=== PATIENT | female | born 1935 | race African-American/Black ===

== ENCOUNTER 2017-03-17 05:14 | Day surgery (SDC) | payer MEDICARE, OTHER ==
[2017-03-17] VITALS (10 sets, daily range): BP systolic 146–177; BP diastolic 58–79
[~2017-03-17] VITALS: Ht 152.4 cm; Wt 66.2 kg
[2017-03-17] MEDS ORDERED: Phenylephrine 2.5% Op 2ml Soln ONE (05:34)
[2017-03-17] MEDS ORDERED: Cyclopentolate 1% Opth Sol 2ml ONE (05:34)
[2017-03-17] MEDS ORDERED: Flurbiprofen 0.03% Opth Sol 2.5ml ONE (05:34)
[2017-03-17] MEDS ORDERED: Vigamox Opth Soln 3ml ONE (05:34)
[2017-03-17] MEDS: Cyclopentolate 1% Opth Sol 2ml RIGHT EYE SCH ×3 (05:52→06:24)
[2017-03-17] MEDS: Vigamox Opth Soln 3ml RIGHT EYE SCH ×3 (05:52→06:24)
[2017-03-17] MEDS: Flurbiprofen 0.03% Opth Sol 2.5ml RIGHT EYE SCH ×3 (05:52→06:24)
[2017-03-17] MEDS: Phenylephrine 2.5% Op 2ml Soln RIGHT EYE SCH ×3 (05:52→06:24)
[2017-03-17] MEDS ORDERED: Pred Forte 1% Opth Susp 1ml RIGHT EYE SCH (06:00)
--- NOTE | 2017-03-17 06:00 | Pre-op HX & Phy Repo 2 SIG ---
DATE OF ADMISSION: 03/17/2017 DATE OF SURGERY: 03/17/2017 PREOPERATIVE DIAGNOSIS: Retained lens material, right eye. PROCEDURES PERFORMED: 1. Pars plana vitrectomy with removal of retained lens material. 2. By Dr. Manjeet Putnam insertion of secondary intra-ocular lens. BRIEF NOTE: This is a first [facility] admission for the patient, who is a very nice 81-year-old lady, who had a cataract surgery performed this morning complicated by posterior capsular rupture. No implant was placed by the operating surgeon. She was seen at my office with some degree of discomfort and inflammation and was found to have retained lens material, both nuclear and cortical with mild anterior segment inflammation. PAST OCULAR HISTORY: Negative for prior cataract surgery. PAST MEDICAL HISTORY: Remarkable for hypertension, previous cerebrovascular accident, chronic obstructive pulmonary disease, and peripheral vascular disease. She will be admitted for surgery this morning. ALLERGIES: She has no known allergies. PHYSICAL EXAMINATION: Best vision at the time of admission was hand motions in the right eye, 20/50 in the left. The pressures were 28 and 18. The anterior segment on the right showed 1+ conjunctival chemosis. There is also injection. A single suture was placed across the cataract wound at the 10 o'clock position. The anterior chamber was deep with mild inflammation and residual cortical material between the leaves of the capsule, mainly temporally. The left anterior segment was clear. There was a significant nuclear cataract. The fundus on the right could not be seen secondary to the cortical opacification of residual lens material. The left was undilated, which showed what appeared to be a normal-appearing posterior segment only. An ultrasound exam done at the time of the visit showed the retina to be all attached with no evidence of choroidal effusions. There was extensive lens debris with smaller fragments anteriorly in the vitreous and a larger fragment posteriorly at about 6 o'clock position. No masses were seen. ASSESSMENT: Retained lens material, right eye. PLAN: The plan is to perform a pars plana vitrectomy, removal of cortical and nuclear fragments with sparing the capsule. A second implant will be performed by co-surgeon Dr. Manjeet Putnam. The risks and benefits of surgery have been gone over with the patient including potential for infection, hemorrhage, glaucoma, inability to place a lens implant, remote possibility of loss of the eye. The risk of anesthesia was discussed. and her family understands and consents to surgery to be performed tomorrow morning. Mehdi Man M.D. DR: PINO JOB#: [id number] CC:
[2017-03-17 06:11] LABS: BASOPHILS % (AUTO) 0.9 % (0.0-2.0); EOSINOPHILS % (AUTO) 8.9 % (0.0-3.0); LYMPHOCYTES % (AUTO) 15.1 % (20.0-45.0); MEAN CORPUSCULAR HEMOGLOBIN 29.5 PG (27.0-31.0); MEAN CORPUSCULAR HGB CONC 31.3 G/DL (32.0-36.0); MEAN CORPUSCULAR VOLUME 94 FL (80-99); MONOCYTES % (AUTO) 15.6 % (1.0-10.0); NEUTROPHILS % (AUTO) 59.6 % (45.0-75.0); PLATELET COUNT 150 K/UL (150-450); RED BLOOD COUNT 5.25 M/UL (4.20-5.40); RED CELL DISTRIBUTION WIDTH 16.2 % (11.6-14.8); WHITE BLOOD COUNT 4.6 K/UL (4.8-10.8)
--- NOTE | 2017-03-17 06:16 | Pre-Procedure Note/Attestation ---
Pre-Procedure Note/Attestation Complete Prior to Procedure Planned Procedure: right Procedure Narrative: 1) PPV, reinforcement of cataract wound, fragmentation of retained lens material Right eye 2) Insertion of secondary intraocular lens implant R eye (Dr Putnam) Indications for Procedure Pre-Operative Diagnosis: Retained cataract fragments, Right eye Attestation I attest that I discussed the nature of the procedure; its benefits; risks and complications; and alternatives (and the risks and benefits of such alternatives ), prior to the procedure, with the patient (or the patient's legal automotive leasing sales representative). I attest that, if there was a reasonable possibility of needing a blood transfusion, the patient (or the patient's legal automotive leasing sales representative) was given the [place] Department [employer] Services standardized written summary, pursuant to the Alonzo Alex Blood Safety Act ([place] Health and Safety Code # 1645, as amended). I attest that I re-evaluated the patient just prior to the surgery and that there has been no change in the patient's H&P, except as documented below: BEVERLY PIZANO Mar 17, 2017 06:15
[2017-03-17] MEDS ORDERED: Norco 5mg/325mg tab ORAL PRN ×3 (06:30→15:01)
[2017-03-17] MEDS ORDERED: HYDRALAZINE HCL50 MG ORAL (06:34)
[2017-03-17] MEDS ORDERED: NEXIUM40 MG ORAL (06:34)
[2017-03-17] MEDS ORDERED: ALBUTEROL SULF8.5 GM INH (06:34)
[2017-03-17] MEDS ORDERED: LOSARTAN POTAS100 MG ORAL (06:34)
[2017-03-17] MEDS ORDERED: LIVALO2 MG PO (06:34)
[2017-03-17] MEDS ORDERED: TORSEMIDE20 MG ORAL (06:34)
[2017-03-17] MEDS ORDERED: FOLIC ACID ORAL (06:34)
[2017-03-17] MEDS ORDERED: ELIQUIS2.5 MG PO (06:34)
[2017-03-17] MEDS ORDERED: SPIRONOLACTONE1 EACH ORAL (06:34)
[2017-03-17] MEDS ORDERED: BISOPROLOL FUMAR5 MG PO (06:34)
[2017-03-17] MEDS ORDERED: CATAPRES0.1 MG ORAL (06:34)
[2017-03-17] MEDS ORDERED: ISORBIDE PO (06:34)
[2017-03-17] MEDS ORDERED: BEVESPI AEROS10.7 GM IH (06:34)
[2017-03-17] MEDS ORDERED: Dexamethasone 4mg/ml vial ONE (06:45)
[2017-03-17] MEDS ORDERED: Kenalog-40 1ml Vial ONE (06:45)
[2017-03-17] MEDS ORDERED: BSS 500ml btl ONE (06:45)
[2017-03-17] MEDS ORDERED: Maxitrol Opth Oint 3.5gm ONE (06:45)
[2017-03-17] MEDS ORDERED: Bupivacaine 0.75% 30ml vial INJ ONE (06:46)
[2017-03-17] MEDS ORDERED: Kenalog-10 5ml Inj ONE (06:46)
[2017-03-17] MEDS ORDERED: BSS 15ml BTL ONE ×2 (06:46→08:44)
[2017-03-17] MEDS ORDERED: EPINEPHrine 1mg/1ml Amp ONE (06:46)
[2017-03-17] MEDS ORDERED: Povidone-Iodine 5% opth solution ONE (06:46)
[2017-03-17] MEDS ORDERED: Tetracaine 0.5% Opth 4ml Soln ONE (06:46)
[2017-03-17] MEDS ORDERED: Sodium Hyaluronate 10 mg/ml 0.85ml ONE (06:47)
[2017-03-17] MEDS ORDERED: Lidocaine 2% MPF 5ml Vial INJ ONE (06:48)
[2017-03-17 06:49] LABS: ANION GAP 10 (5-15); CALCIUM 9.3 MG/DL (8.5-10.1); CARBON DIOXIDE 23 MMOL/L (21-32); CHLORIDE 104 MMOL/L (98-107); CREATININE 1.6 MG/DL (0.55-1.30); POTASSIUM 4.8 MMOL/L (3.5-5.1); SODIUM 137 MMOL/L (136-145)
[2017-03-17] MEDS ORDERED: Flumazenil 0.1mg/ml 5ml Inj IV ONE (07:00)
[2017-03-17] MEDS ORDERED: Lidocaine 1% MPF 10mg/ml 5ml ONE (07:00)
[2017-03-17] MEDS ORDERED: Propofol 200mg/20ml IV ONE (07:00)
[2017-03-17] MEDS ORDERED: NS Irrig 1000ml ONE (07:00)
[2017-03-17] MEDS ORDERED: Midazolam 2mg/2ml Inj ONE (07:00)
[2017-03-17] MEDS ORDERED: Ketamine 500mg Inj ONE (07:00)
[2017-03-17] MEDS ORDERED: LR 1000ml ONE (07:00)
[2017-03-17] MEDS ORDERED: Sterile Water Irrig 1000ml IRRIG ONE (07:00)
[2017-03-17] MEDS ORDERED: LR 1000ml 1,000 ML IVLG SCH (07:02)
--- NOTE | 2017-03-17 07:11 | Anethesia Preoperative Eval ---
Anesthesia Pre-op PMH/ROS General Date of Evaluation: Mar 17, 2017 Time of Evaluation: 07:09 Anesthesiologist: Archana ASA Score: ASA 3 Mallampati Score Class I : Soft palate, uvula, fauces, pillars visible Class II: Soft palate, uvula, fauces visible Class III: Soft palate, base of uvula visible Class IV: Only hard plate visible Mallampati Classification: Class II Surgeon: Magda Diagnosis: Retained Lens OD Surgical Procedure: Vitrectomy OD Anesthesia History: none Social History: smoking Family History: no anesthesia problems Allergies: Coded Allergies: No Known Allergies (Unverified , 03/16/17) Medications: see eMAR Past Medical History Cardiovascular: Reports: HTN, CAD - CABGX3, ID, other - HL Pulmonary: Reports: COPD Gastrointestinal/Genitourinary: Reports: GERD, CRI Neurologic/Psychiatric: Reports: depression/anxiety HEENT: Reports: cataract (L), cataract (R) Hematology/Immune: Reports: anemia PSxH Narrative: Lumbar SX, CABG, Bladder Lift, Cat Ext IOL OD Anesthesia Pre-op Phys. Exam Physician Exam Last Vital Signs Date Time Temp Pulse Resp B/P (MAP) Pulse Ox O2 Delivery O2 Flow Rate FiO2 03/17/17 06:10 97.3 78 18 146/79 96 Nasal Cannula 4.0 Constitutional: NAD Neurologic: CN 2-12 intact Cardiovascular: RRR Respiratory: CTA Gastrointestinal: S/NT/ND Airway Exam Mallampati Score: Class II MO: limited ROM: limited Teeth: missing Dentures: upper, lower Anesthesia Pre-op A/P Labs Hematology Test 03/17/17 05:50 White Blood Count 4.6 K/UL (4.8-10.8) L Red Blood Count 5.25 M/UL (4.20-5.40) Hemoglobin 15.5 G/DL (12.0-16.0) Hematocrit 49.4 % (37.0-47.0) H Mean Corpuscular Volume 94 FL (80-99) Mean Corpuscular Hemoglobin 29.5 PG (27.0-31.0) Mean Corpuscular Hemoglobin Concent 31.3 G/DL (32.0-36.0) L Red Cell Distribution Width 16.2 % (11.6-14.8) H Platelet Count 150 K/UL (150-450) Mean Platelet Volume 10.0 FL (6.5-10.1) Neutrophils (%) (Auto) 59.6 % (45.0-75.0) Lymphocytes (%) (Auto) 15.1 % (20.0-45.0) L Monocytes (%) (Auto) 15.6 % (1.0-10.0) H Eosinophils (%) (Auto) 8.9 % (0.0-3.0) H Basophils (%) (Auto) 0.9 % (0.0-2.0) Chemistry Test 03/17/17 05:50 Sodium Level 137 MMOL/L (136-145) Potassium Level 4.8 MMOL/L (3.5-5.1) Chloride Level 104 MMOL/L (98-107) Carbon Dioxide Level 23 MMOL/L (21-32) Anion Gap 10 (5-15) Blood Urea Nitrogen 33 mg/dL (7-18) H Creatinine 1.6 MG/DL (0.55-1.30) H Estimat Glomerular Filtration Rate mL/min (>60) Glucose Level 115 MG/DL (74-106) H Calcium Level 9.3 MG/DL (8.5-10.1) Risk Assessment & Plan Assessment: ASA 3 Plan: GA Status Change Before Surgery: Abraham Crews MD Mar 17, 2017 07:11
--- NOTE | 2017-03-17 07:12 | Immediate Post-Op Evaluation ---
Immediate Post-Op Evalulation Immediate Post-Op Evalulation Procedure: Vtrectomy OD Date of Evaluation: Mar 17, 2017 Time of Evaluation: 09:35 IV Fluids: 600 LR Blood Products: 0 Estimated Blood Loss: 1 Urinary Output: 0 Blood Pressure Systolic: 177 Blood Pressure Diastolic: 70 Pulse Rate: 75 Respiratory Rate: 16 O2 Sat by Pulse Oximetry: 96 Temperature (Fahrenheit): 97.2 Pain Score (1-10): 1 Nausea: No Vomiting: No Complications 0 Patient Status: awake, reacts, patent, none Hydration Status: adequate Abraham Magaña MD Mar 17, 2017 07:12
--- NOTE | 2017-03-17 07:12 | 48 Hour Post Anesthesia Eval ---
Post Anesthesia Evaluation Procedure: Vtrectomy OD Date of Evaluation: Mar 17, 2017 Time of Evaluation: 11:42 Blood Pressure Systolic: 176 0: 101 Pulse Rate: 64 Respiratory Rate: 18 Temperature (Fahrenheit): 97.6 O2 Sat by Pulse Oximetry: 96 Airway: patent Nausea: No Vomiting: No Pain Intensity: 1 Hydration Status: adequate Cardiopulmonary Status: Stable Mental Status/LOC: patient returned to baseline Follow-up Care/Observations: 0 Post-Anesthesia Complications: 0 Follow-up care needed: ready to discharge Abraham Magaña MD Mar 17, 2017 07:12
[2017-03-17] MEDS ORDERED: Atropine Inj 1mg/10ml Syr IV PRN (07:15)
[2017-03-17] MEDS ORDERED: fentaNYL 100 mcg/2 mL IV PRN (07:15)
[2017-03-17] MEDS ORDERED: LORazepam Inj 2mg/ml 1ml IV PRN (07:15)
[2017-03-17] MEDS ORDERED: Ketorolac 60mg Inj IV PRN (07:15)
[2017-03-17] MEDS ORDERED: Ketorolac 30mg Inj IV PRN (07:15)
[2017-03-17] MEDS ORDERED: DiphenhydrAMINE 50mg/ml Inj IVP PRN (07:15)
[2017-03-17] MEDS ORDERED: Hydromorphone 0.5mg/0.5ml inj IVP PRN (07:15)
[2017-03-17] MEDS ORDERED: oxyCODONE HCL/Acetaminophen 5/325mg ORAL PRN (07:15)
[2017-03-17] MEDS ORDERED: Midazolam 2mg/2ml Inj IVP PRN (07:15)
[2017-03-17] MEDS ORDERED: Norco 7.5mg/325mg tab ORAL PRN (07:15)
[2017-03-17] MEDS ORDERED: Metoclopramide 10mg/2ml Inj IVP PRN (07:15)
[2017-03-17] MEDS ORDERED: Acetylcholine Injection (OR) ONE (08:12)
[2017-03-17] MEDS ORDERED: Fluorescein Strips ONE (08:21)
[2017-03-17] MEDS ORDERED: Pilocarpine 2% Opth 15ml Soln ONE (09:04)
--- NOTE | 2017-03-17 20:21 | Brief Operative Note ---
Immediate Post Operative Note Operative Note Chief Complaint: Clouds in vision right eye Pre-op Diagnosis: Retained cataract fragments, Right eye Procedure: !) Pars plana vitrectomy, reinforcement of cataract wound, Fragmentation and removal of retained lens material R eye 2) Insertion of secondary IOL Right eye ( Dr Putnam) Post-op Diagnosis: same as pre-op Surgeon: 1Kari Pizano 2) [place] Tack Maker: 1) [place] 2) Magda Anesthesiologist: Archana Anesthesia: MAC Specimen: none Complications: none Condition: stable Fluids: Npne Estimated Blood Loss: none Drains: none Implant(s) used?: Yes - 16.5 diopter AC lens BEVERLY PIZANO Mar 17, 2017 20:21
--- NOTE | 2017-03-18 18:15 | Operative Note - Dictated ---
DATE OF OPERATION: 03/17/2017 PREOPERATIVE DIAGNOSIS: Retained lens material, right eye. POSTOPERATIVE DIAGNOSIS: Retained lens material, right eye. PROCEDURES: 1. Pars plana vitrectomy, reinforcement of cataract wound, fragmentation and removal of retained lens material, right eye. 2. By Dr. Putnam was insertion of secondary anterior chamber lens, right eye. SURGEONS: 1. Surgeon for #[address] Mehdi Man, insurance underwriting assistant Dr. Manjeet Putnam. 2. Surgeon for #[address] Manjeet Putnam, insurance underwriting assistant Dr. Mehdi Man. ANESTHESIA: Local sedation. ANESTHESIOLOGIST: Abraham Magaña M.D. JUSTIFICATION FOR SURGERY: This 81-year-old female underwent cataract surgery the day before complicated by loss of the posterior capsule and retention of lens fragments. BRIEF NOTE: The patient was brought to the operating room, placed on OR table in supine position. After a time-out was performed and agreed upon by the staff and initial monitoring secured by Dr. Magaña, retrobulbar and Van Lint blocks were given in the standard way. When the blocks taken effect, she was prepped and draped in normal manner. A lid speculum was inserted into the right eye. Using a 23-gauge trocar system, cannulas were placed in all except infranasal quadrant. Conjunctiva was opened superotemporally for later enlargement to insert the fragmatome. The initial vitrectomy was done posterior to the iris plane in the mid vitreous to remove any residual vitreous adhesions. The posterior capsule was noted to be opened, so the vitreous cutter was placed through this and into the anterior chamber where gentle suction was used to retrieve any loose cortical material. This went without difficulty producing an excellent view. It should be noted that prior to initiation of the procedure, a single suture of 10-0 nylon was placed across the corneal wound to reinforce it for the subsequent vitrectomy. At this juncture, the vitreous cutter was then used to remove more peripheral vitreous leaving a small vitreous skirt. This was carried further posteriorly where the posterior hyaloid was noted to be detached and this was also removed. No posterior damage to the retina was seen. There were, however, large portions of cortical and nuclear material. The cortex was gently removed from around the nuclear material, leaving at least 3 large hunks of nucleus. The supratemporal wound was then enlarged to 20-gauge size and the fragmatome was then placed into the eye to remove the remaining fragments of nuclear material. These were engaged with gentle suction posteriorly and brought to the mid vitreous cavity where they were fragmented. Scleral depression was performed revealing a few particles of cortex entrapped in peripheral vitreous. Kenalog was used to aid in visualization of the vitreous and the vitreous cutter was used to trim the peripheral vitreous down enough so that the cortical material fell posteriorly. This was also removed. Examination was then made to the anterior chamber where only very limited amounts of capsular support were noted, principally at the inferior portion of the anterior chamber. These were left alone and residual cortical strands were removed. It was judged by Dr. Putnam that not a sufficient support was available to place a sulcus-fixated lens. The procedure was then turned over to Dr. Putnam, who performed insertion of an anterior chamber lens plus a peripheral iridotomy using a scleral tunnel at 12 o'clock. Once this was then closed and the procedure returned to az, the supratemporal sclerotomy was secured with interrupted sutures of 7-0 Vicryl. The infusion cannula was removed and this area secured with 7-0 Vicryl as well. The supranasal sclerotomy was noted to be self-sealing. No suture was required. Subconjunctival Decadron and gentamicin were then injected and topical pilocarpine 2%, prednisolone, Vigamox, and Maxitrol ointment were instilled. The eye was patched and shielded, and the patient was taken to recovery in excellent condition. There were no complications. It should be noted that due to lack of an adequate capsular support, an anterior chamber lens, 16.1 diopters was placed. Mehdi Man M.D. DR: MIRANDA JOB#: [id number] CC: Clark Medina M.D. ; FAX#: [phone]
--- NOTE | 2017-03-22 08:15 | Operative Note - Dictated ---
DATE OF OPERATION: 03/17/2017 SURGEON: Manjeet Putnam M.D. GOVERNMENT DOCUMENTS LIBRARIAN SURGEON: Mehdi Man M.D. ANESTHESIOLOGIST: Abraham Magaña M.D. PREOPERATIVE DIAGNOSIS: Aphakia, right eye. POSTOPERATIVE DIAGNOSIS: Aphakia, right eye. PROCEDURE: 1. Placement of secondary intraocular lens, right eye (model Steven 01:00 power 16.5). 2. Peripheral iridectomy, right eye. SPECIMENS: None. COMPLICATIONS: None. INDICATIONS FOR SURGERY: The patient is currently status post cataract extraction in the right eye. She has no intraocular lens at this time. The patient understands the risks of surgery including infection, bleeding, need for further surgery, loss of vision, no improvement in vision, loss of the eye, loss of life, glaucoma, retinal detachment, understands these risks and elected to proceed with surgery. FINDINGS: The patient was aphakic in the right eye with no capsule present that would be 01:41 to support a sulcus placed intraocular lens. OPERATIVE NOTE: After informed consent was obtained, the patient was brought into the operating room and placed in supine position. Cardiac and respiratory monitors were attached. A time-out was performed and all criteria were met and everyone in the room agreed. Dr. Man proceeded with his part of the surgery, which will be dictated under separate operative note. When I took over as primary surgeon and also during the procedure with Dr. Man, we were able to agree that there was no capsule to support placing a lens in the capsule or even a sulcus fixation. At this time, it was then elected to place an anterior chamber intraocular lens. When I took over as primary surgeon, a conjunctival peritomy from approximately 11 o'clock to 1 o'clock was made and dissected posteriorly. Hemostasis was maintained with bipolar cautery. The length-huitron measurements were approximately 11. A 6 mm limbal incision was made and centered at approximately 12 o'clock and dissected anteriorly. The anterior chamber was entered using a 2.6 mm keratome and wound was extended to approximately 6 mm. Miochol was injected into the anterior chamber for the pupil to constrict. Healon was then injected into the anterior chamber. A Sheets glide was then placed into the anterior chamber and the anterior chamber intraocular lens was removed from its package and irrigated and then placed along the Sheets glide into the anterior chamber. The Sheets glide was then removed and the intraocular lens was positioned into the 3 o'clock to 9 o'clock meridian. The pupil was noted to be nice and round. A peripheral iridectomy was performed. Healon was irrigated from the anterior chamber. Multiple 10-0 nylon interrupted sutures were placed at the limbal incision. All knots were rotated and buried. Examination of the previous cataract revealed that additional sutures need to be placed and the ones that were present were removed and one 10-0 nylon interrupted suture was placed in the corneal wound. All knots were rotated and buried. The wounds were checked and found to be Travis negative. The conjunctiva was closed with an 8-0 Vicryl suture as well as forceps cautery. In addition, one 05:17 port was closed with 8-0 Vicryl. Again, all wounds were checked and found to be Travis negative. Sub-tenon injections of Decadron and gentamicin were given. The lid speculum and drapes were removed from the eye and drops of Vigamox, Pred Forte, and Timoptic were applied to the eye followed by Maxitrol ointment and 05:46 patch and shield. The patient tolerated the procedure well and left the operating room awake, alert, and in stable condition. Manjeet Putnam M.D. DR: Raffi JOB#: [id number] CC:
== END 2017-03-17 11:10 | disposition home or self-care (01) ==
LOC: SUR 05:14
DX: H27.01 Aphakia, right eye (principal); Z18.89 Other specified retained foreign body fragments; J44.9 Chronic obstructive pulmonary disease, unspecified; K21.9 Gastro-esophageal reflux disease without esophagitis; M48.00 Spinal stenosis, site unspecified; I25.10 Atherosclerotic heart disease of native coronary artery without angina pectoris; I10 Essential (primary) hypertension; I25.2 Old myocardial infarction; F32.9 Major depressive disorder, single episode, unspecified; F41.9 Anxiety disorder, unspecified; E78.5 Hyperlipidemia, unspecified; F17.200 Nicotine dependence, unspecified, uncomplicated; Z86.73 Personal history of transient ischemic attack (TIA), and cerebral infarction without residual deficits; Z95.1 Presence of aortocoronary bypass graft; Z99.81 Dependence on supplemental oxygen; I73.9 Peripheral vascular disease, unspecified
CPT/HCPCS: 36415; 66852; 66985; 80048; 85025; J0171; J1100; J2250; J2704; J3301; J3470; J3490; J7120; V2632; 94003; 94150